=== PATIENT | male | born 1990 | race Caucasian/White ===

== ENCOUNTER → 2017-03-04 | Outpatient (CLI) | payer OTHER ==
[~2017-03-04] MED LIST: ALPRAZOLAM0.25 MG PO; AMOXICILLIN 50500 MG; ANTIDEPRESSANT; CEPHALEXIN500 M1 PO; CITALOPRAM20 MG PO; FLEXERIL 1010 MG/TAB PO; IBU800 M1 PO; LORTAB 5/500 501 TAB PO; NO HOME MEDICATIONS; NORCO 325 MG-51 TAB PO; NORCO 325 MG-7.1 TAB PO; VICODIN 5/5001 UDTAB PO
== END ==
LOC: COL.RAD 08:40
DX: M47.817 Spondylosis without myelopathy or radiculopathy, lumbosacral region (principal); M51.27 Other intervertebral disc displacement, lumbosacral region; M48.07 Spinal stenosis, lumbosacral region; S39.012D Strain of muscle, fascia and tendon of lower back, subsequent encounter

== ENCOUNTER 2017-03-19 10:54 | Outpatient (RCR) | payer OTHER | END 2017-04-07 11:20 | LOC: WSOH 10:54 | DX: S39.012A Strain of muscle, fascia and tendon of lower back, initial encounter (principal); X50.0XXA Overexertion from strenuous movement or load, initial encounter; Y99.0 Civilian activity done for income or pay | CPT/HCPCS: G0283-GP ==

== ENCOUNTER → 2017-07-16 | Outpatient (CLI) | payer OTHER | LOC: COL.RAD 09:55 | DX: M51.17 Intervertebral disc disorders with radiculopathy, lumbosacral region (principal); M51.36 Other intervertebral disc degeneration, lumbar region ==

== ENCOUNTER → 2017-10-01 | Outpatient (CLI) | payer OTHER | LOC: COL.RAD 13:40 | DX: M47.814 Spondylosis without myelopathy or radiculopathy, thoracic region (principal); M51.24 Other intervertebral disc displacement, thoracic region | CPT/HCPCS: A9585 ==

== ENCOUNTER 2017-11-23 05:47 | Emergency (ER) | payer OTHER ==
[~2017-11-23] VITALS: Ht 190.5 cm; Wt 159.1 kg
[2017-11-23 05:51] VITALS: TEMP 97.7
[2017-11-23] MEDS ORDERED: MOTRIN 800800 MG/TAB PO (05:54)
[2017-11-23] MEDS ORDERED: TYLENOL 500MG500 MG PO (05:54)
[2017-11-23 06:35] LABS: BASO # 0.1 (0.0-0.2); BASO % 0.3 % (0.0-2.0); EOS # 0.2 (0.0-0.7); EOS % 1.3 % (0-4.0); GRAN # 14.8 (1.4-6.5); GRAN % 85.4 % (42.2-75.2); HEMATOCRIT 48.5 % (42.0-52.0); HEMOGLOBIN 17.2 g/dl (13.5-18.0); LYMPH # 1.1 (1.2-3.4); LYMPH % 6.1 % (20.0-51.0); MEAN CELL VOLUME 87 fl (80.0-100.0); MEAN CORPUSCULAR HEMOGLOBIN 31 pg (27.0-31.0); MEAN CORPUSCULAR HGB CONC 36 g/dl (33.0-37.0); MEAN PLATELET VOLUME 9.7 fl (7.4-10.4); MONO # 1.1 (0.1-0.6); MONO % 6.4 % (1.7-9.3); PLATELET COUNT 260 K/mm3 (130-400); RED BLOOD COUNT 5.55 M/mm3 (4.20-5.60); REDCELL DISTRIBUTION WIDTH-CV 11.7 % (11.5-14.5)
[2017-11-23 06:50] LABS: ALBUMIN 4.5 gm/dL (3.5-5.0); BILIRUBIN,TOTAL 0.8 mg/dL (0.0-1.0); C-REACTIVE PROTEIN 0.6 mg/dL (0.0-0.9); CALCIUM 9.3 mg/dL (8.4-10.2); CREATININE, serum 0.73 mg/dL (0.66-1.25); TOTAL PROTEIN 8.1 gm/dL (6.4-8.2)
[2017-11-23 08:33] LABS: COLLECTION METHOD CLEAN CATCH
[2017-11-23 08:42] LABS: MUCOUS Present /lpf; PH 5 (5-8); SQUAMOUS EPITHELIAL None Seen /hpf; URINE APPEARANCE Clear; URINE BACTERIA None Seen /hpf; URINE BILIRUBIN Negative (NEGATIVE); URINE BLOOD Negative (NEGATIVE); URINE COLOR Yellow; URINE GLUCOSE Negative (NEGATIVE); URINE KETONE Negative (NEGATIVE); URINE LEUKOCYTE ESTERASE Negative (NEGATIVE); URINE NITRATE Negative (NEGATIVE); URINE PROTEIN(semi-quant) Negative (NEGATIVE); URINE RBC 0-2 /hpf; URINE UROBILINOGEN Negative (NEGATIVE)
[2017-11-23] MEDS ORDERED: ZOFRAN ODT4 MG PO (08:51)
[2017-11-23 09:46] VITALS: BP 128/94; PULSE 91
== END 2017-11-23 09:50 | disposition home or self-care (01) ==
LOC: COL.ER 05:47
PROVIDERS: Emergency Medicine
DX: K52.9 Noninfective gastroenteritis and colitis, unspecified (principal); G89.29 Other chronic pain; M54.5 Low back pain; E66.9 Obesity, unspecified; F17.210 Nicotine dependence, cigarettes, uncomplicated; Z68.41 Body mass index [BMI] 40.0-44.9, adult; Z87.440 Personal history of urinary (tract) infections
CPT/HCPCS: J2270; J2550; J2765; J7030; Q9967

== ENCOUNTER 2018-11-09 23:30 | Emergency (ER) | payer OTHER ==
[~2018-11-09] VITALS: Ht 190.5 cm; Wt 159.1 kg
[~2018-11-09 23:30] MED LIST changes: +MOTRIN 800800 MG/TAB PO; +TYLENOL 500MG500 MG PO; +ZOFRAN ODT4 MG PO
[2018-11-09 23:41] VITALS: TEMP 99.1
[2018-11-10 00:06] LABS: BASO # 0.1 (0.0-0.2); BASO % 0.6 % (0.0-2.0); EOS # 0.2 (0.0-0.7); EOS % 2.4 % (0-4.0); GRAN # 4.8 (1.4-6.5); GRAN % 52.8 % (42.2-75.2); HEMATOCRIT 45.8 % (42.0-52.0); HEMOGLOBIN 16.4 g/dl (13.5-18.0); LYMPH # 3.3 (1.2-3.4); LYMPH % 36.6 % (20.0-51.0); MEAN CELL VOLUME 87 fl (80.0-100.0); MEAN CORPUSCULAR HEMOGLOBIN 31 pg (27.0-31.0); MEAN CORPUSCULAR HGB CONC 36 g/dl (33.0-37.0); MEAN PLATELET VOLUME 9.3 fl (7.4-10.4); MONO # 0.7 (0.1-0.6); MONO % 7.5 % (1.7-9.3); PLATELET COUNT 277 K/mm3 (130-400); RED BLOOD COUNT 5.27 M/mm3 (4.20-5.60); REDCELL DISTRIBUTION WIDTH-CV 11.6 % (11.5-14.5)
[2018-11-10 00:13] LABS: ALANINE AMINOTRANSFERASE 54 U/L (21-72); ALBUMIN 4.5 gm/dL (3.5-5.0); ALKALINE PHOSPHATASE 33 U/L (50-136); ANION GAP 11 mmol/L (7-16); AST,SGOT 33 U/L (15-37); BILIRUBIN,TOTAL 0.3 mg/dL (0.0-1.0); BLOOD UREA NITROGEN 9 mg/dL (9-20); CALCIUM 9.6 mg/dL (8.4-10.2); CARBON DIOXIDE 25 mmol/L (22-30); CHLORIDE 102 mmol/L (98-107); CREATININE, serum 0.71 mg/dL (0.66-1.25); GLUCOSE 100 mg/dL (74-106); SODIUM 138 mmol/L (137-145)
[2018-11-10 00:15] LABS: PROTHROMBIN TIME 11.3 SECONDS (9.7-12.8)
[2018-11-10] MEDS ORDERED: CHANTIX 1MG1 MG PO (00:20)
[2018-11-10] MEDS ORDERED: PRINIVIL20 MG PO (00:21)
[2018-11-10] MEDS ORDERED: LEXAPRO 10MG10 MG PO (00:21)
[2018-11-10] MEDS ORDERED: NORCO 325 MG-51 TAB PO (00:22)
[2018-11-10 00:23] LABS: D-DIMER < 200.00 ng/mLDDu (200-230)
[2018-11-10] MEDS ORDERED: BENADRYL25 M2 PO (00:23)
[2018-11-10 00:25] LABS: TROPONIN-I < 0.012 ng/mL (0.000-0.035)
[2018-11-10 04:05] VITALS: BP 136/93; PULSE 75
== END 2018-11-10 04:05 | disposition home or self-care (01) ==
LOC: COL.ER 23:30
PROVIDERS: Emergency Medicine
DX: R07.89 Other chest pain (principal); F17.210 Nicotine dependence, cigarettes, uncomplicated
CPT/HCPCS: J3010; J7030; Q9967

== ENCOUNTER 2019-02-04 12:36 | Emergency (ER) | payer OTHER ==
[~2019-02-04] VITALS: Ht 190.5 cm; Wt 159.1 kg
[~2019-02-04 12:36] MED LIST changes: +BENADRYL25 M2 PO; +CHANTIX 1MG1 MG PO; +LEXAPRO 10MG10 MG PO; +PRINIVIL20 MG PO
[2019-02-04 12:43] VITALS: TEMP 96.9
[2019-02-04] MEDS ORDERED: NORCO 325 MG-51 TAB PO (14:23)
[2019-02-04 15:23] VITALS: BP 149/91; PULSE 86
== END 2019-02-04 15:23 | disposition home or self-care (01) ==
LOC: COL.ER 12:36
DX: M54.41 Lumbago with sciatica, right side (principal); F17.210 Nicotine dependence, cigarettes, uncomplicated; Z88.5 Allergy status to narcotic agent

== ENCOUNTER 2019-05-11 00:23 | Emergency (ER) | payer OTHER ==
[~2019-05-11] VITALS: Ht 190.5 cm; Wt 154.5 kg
[2019-05-11 00:33] VITALS: TEMP 97.8
[2019-05-11] MEDS ORDERED: NORCO 325 MG-51 TAB PO (02:34)
[2019-05-11] MEDS ORDERED: FLEXERIL 1010 MG/TAB PO (02:34)
[2019-05-11] MEDS ORDERED: MEDROL 4MG DOSPA4 MG PO (02:43)
[2019-05-11 03:24] VITALS: BP 141/95; PULSE 16
== END 2019-05-11 03:24 | disposition home or self-care (01) ==
LOC: COL.ER 00:23
DX: G89.29 Other chronic pain (principal); M54.9 Dorsalgia, unspecified; Y99.0 Civilian activity done for income or pay
CPT/HCPCS: J1170

== ENCOUNTER 2019-06-10 18:15 | Emergency (ER) | payer OTHER ==
[~2019-06-10] VITALS: Ht 190.5 cm; Wt 150.0 kg
[~2019-06-10 18:15] MED LIST changes: +MEDROL 4MG DOSPA4 MG PO
[2019-06-10 18:21] VITALS: TEMP 97.6
[2019-06-10 18:59] LABS: COLLECTION METHOD CLEAN CATCH
[2019-06-10 19:04] LABS: MUCOUS Present /lpf; PH 5 (5-8); SQUAMOUS EPITHELIAL None Seen /hpf; URINE APPEARANCE Clear; URINE BACTERIA None Seen /hpf; URINE BILIRUBIN Negative (NEGATIVE); URINE BLOOD Negative (NEGATIVE); URINE COLOR Yellow; URINE GLUCOSE Negative (NEGATIVE); URINE KETONE Negative (NEGATIVE); URINE LEUKOCYTE ESTERASE Negative (NEGATIVE); URINE NITRATE Negative (NEGATIVE); URINE PROTEIN(semi-quant) Negative (NEGATIVE); URINE RBC 0-2 /hpf; URINE UROBILINOGEN Negative (NEGATIVE)
[2019-06-10 19:05] LABS: ALBUMIN 4.5 gm/dL (3.5-5.0); BILIRUBIN,TOTAL 0.5 mg/dL (0.0-1.0); C-REACTIVE PROTEIN 0.7 mg/dL (0.0-0.9); CALCIUM 9.8 mg/dL (8.4-10.2); CREATININE, serum 0.63 (0.66-1.25); POTASSIUM 4.6 mmol/L (3.4-5.0)
[2019-06-10 19:06] LABS: BASO % 0.5 % (0.0-2.0); EOS # 0.1 (0.0-0.7); EOS % 1.7 % (0-4.0); GRAN # 4.7 (1.4-6.5); GRAN % 61.3 % (42.2-75.2); HEMATOCRIT 45.6 % (42.0-52.0); HEMOGLOBIN 15.9 g/dl (13.5-18.0); LYMPH # 2.3 (1.2-3.4); LYMPH % 29.5 % (20.0-51.0); MEAN CELL VOLUME 91 fl (80.0-100.0); MEAN CORPUSCULAR HEMOGLOBIN 32 pg (27.0-31.0); MEAN CORPUSCULAR HGB CONC 35 g/dl (33.0-37.0); MEAN PLATELET VOLUME 9.6 fl (7.4-10.4); MONO # 0.5 (0.1-0.6); MONO % 6.6 % (1.7-9.3); PLATELET COUNT 257 K/mm3 (130-400); RED BLOOD COUNT 5.04 M/mm3 (4.20-5.60); REDCELL DISTRIBUTION WIDTH-CV 11.9 % (11.5-14.5)
[2019-06-10] MEDS ORDERED: NORCO 325 MG-51 TAB PO (20:21)
[2019-06-10] MEDS ORDERED: ZOFRAN ODT4 MG PO (20:21)
[2019-06-10 22:07] VITALS: BP 128/71; PULSE 86
== END 2019-06-10 21:03 | disposition home or self-care (01) ==
LOC: COL.ER 18:15
PROVIDERS: Emergency Medicine
DX: I88.0 Nonspecific mesenteric lymphadenitis (principal); F17.210 Nicotine dependence, cigarettes, uncomplicated; Z88.5 Allergy status to narcotic agent
CPT/HCPCS: J1885; J2405; J3010; J7030; Q9967

== ENCOUNTER → 2021-12-09 | Outpatient (CLI) | payer OTHER | LOC: COL.RAD 09:44 | DX: Z02.71 Encounter for disability determination (principal); M54.50 Low back pain, unspecified ==